=== PATIENT | male | born 1940 ===

== ENCOUNTER 2023-03-23 11:25 | Inpatient (IN) | payer OTHER ==
[~2023-03-23] VITALS: Ht 177.8 cm; Wt 81.6 kg
[2023-03-23] MEDS ORDERED: ACETAMINOPHEN325 M2 PO (17:24)
[2023-03-23] MEDS ORDERED: ALBUTEROL2.5 MG/0.5 INH (17:25)
[2023-03-23] MEDS ORDERED: NORVASC5 MG PO (17:26)
[2023-03-23] MEDS ORDERED: CARBIDOPA-LEVO1 EAC6 PO (17:27)
[2023-03-23] MEDS ORDERED: COREG6.25 MG PO (17:31)
[2023-03-23] MEDS ORDERED: LASIX20 MG PO (17:32)
[2023-03-23] MEDS ORDERED: HYDRALAZINE HYD50 MG PO (17:43)
[2023-03-23] MEDS ORDERED: MELATONIN5 M7 PO (17:52)
[2023-03-23] MEDS ORDERED: PAXIL PO (17:54)
[2023-03-23] MEDS ORDERED: PLAVIX75 M1 PO (17:55)
[2023-03-23] MEDS ORDERED: QULIPTA60 MG PO (17:58)
[2023-03-23] MEDS ORDERED: SENNA8.6 MG PO (18:00)
[2023-03-23] MEDS ORDERED: OMEPRAZOLE40 MG PO (18:01)
[2023-03-23] MEDS ORDERED: MIRALAX17 GM PO (18:01)
[2023-03-23] MEDS ORDERED: CONSTULOSE10 GM/151 PO (18:02)
[2023-03-23 19:32] LABS: BILIRUBIN Negative (Negative); BLOOD Negative (Negative); CLARITY Clear (Clear); COLOR Yellow (Yellow); GLUCOSE Negative (Negative); KETONE Negative (Negative); LEUKO ESTERASE Negative (Negative); NITRITE Negative (Negative); SPECIFIC GRAVITY 1.015 (1.001-1.030); UROBILINOGEN 0.2 E.U./dl (0.0-1.0)
[2023-03-23 19:46] LABS: WBC 0-2 wbc/hpf (0-5)
[2023-03-23 20:00] VITALS: BP 147/87
[2023-03-24 06:37] LABS: HEMATOCRIT 45.1 % (42.0-52.0); LYMPH # 0.7 10*3/uL (1.3-4.4); LYMPH % 7.2 % (27.0-41.0); MEAN CELL VOLUME 87.2 fl (80.0-94.0); MEAN CORPUSCULAR HGB 26.1 pg (27.0-31.0); MEAN CORPUSCULAR HGB CONC 29.9 g/dl (33.0-37.0); MEAN PLATELET VOLUME 9.8 fl (9.6-12.3); MONO # 0.6 10*3/uL (0.1-1.0); MONO % 5.6 % (3.0-9.0); NEUT # 8.5 10*3/uL (2.3-7.9); PLATELET COUNT AUTOMATED 228 10*3/uL (130-400); RED BLOOD COUNT 5.17 10*6/uL (4.50-5.90); RED CELL DISTRI WIDTH 15.1 % (0-14.5); WHITE BLOOD COUNT 9.8 10*3/uL (4.8-10.8)
[2023-03-24 06:58] LABS: BUN 16 mg/dl (9-23); CHLORIDE 98 mmol/L (98-107); CHOLESTEROL 254 mg/dL (<200); LDL CHOLESTEROL 167 mg/dL (9-159); POTASSIUM 4.1 mmol/L (3.4-5.1); TRIGLYCERIDES 168 mg/dl (<150)
[2023-03-24 07:43] LABS: VITAMIN D, 25-HYDROXY 25.4 ng/mL (30-100)
[2023-03-24 08:00] VITALS: BP 168/84
[2023-03-24 20:00] VITALS: BP 135/46
[2023-03-25 08:16] VITALS: BP 150/70
[2023-03-25 20:00] VITALS: BP 150/64
[2023-03-26 08:00] VITALS: BP 154/70
[2023-03-26 20:00] VITALS: BP 150/67
[2023-03-27 07:35] VITALS: BP 96/63
[2023-03-27 20:00] VITALS: BP 156/56
[2023-03-28 09:13] VITALS: BP 152/84
[2023-03-28 20:00] VITALS: BP 150/60
[2023-03-29 07:22] VITALS: BP 154/74
[2023-03-29 19:16] VITALS: BP 150/57
[2023-03-30 06:24] LABS: BASO % 0.2 % (0.0-1.0); BUN 12 mg/dl (9-23); CHLORIDE 99 mmol/L (98-107); EOS # 0.1 10*3/uL (0.0-0.4); EOS % 1.7 % (1.0-4.0); HEMATOCRIT 42.2 % (42.0-52.0); LYMPH % 15.2 % (27.0-41.0); MEAN CORPUSCULAR HGB 26.4 pg (27.0-31.0); MEAN CORPUSCULAR HGB CONC 29.4 g/dl (33.0-37.0); MEAN PLATELET VOLUME 9.7 fl (9.6-12.3); MONO # 0.6 10*3/uL (0.1-1.0); NEUT # 4.6 10*3/uL (2.3-7.9); NEUT % 72.7 % (47.0-73.0); PLATELET COUNT AUTOMATED 180 10*3/uL (130-400); POTASSIUM 4.3 mmol/L (3.4-5.1); RED BLOOD COUNT 4.69 10*6/uL (4.50-5.90); RED CELL DISTRI WIDTH 14.8 % (0-14.5); WHITE BLOOD COUNT 6.3 10*3/uL (4.8-10.8)
[2023-03-30 07:33] VITALS: BP 122/60
[2023-03-30 09:19] LABS: ABG BASE EXCESS 8.8 mmol/L (-2.0-2.0); ARTERIAL BLOOD GAS PH 7.359 (7.35-7.45)
[2023-03-30 20:00] VITALS: BP 135/58
[2023-03-31 06:50] LABS: BUN 8 mg/dl (9-23); CHLORIDE 97 mmol/L (98-107); POTASSIUM 4.4 mmol/L (3.4-5.1)
[2023-03-31 08:00] VITALS: BP 150/52
[2023-03-31 20:00] VITALS: BP 172/65
[2023-04-01 07:27] VITALS: BP 153/76
[2023-04-01 08:01] LABS: BUN 10 mg/dl (9-23); CHLORIDE 98 mmol/L (98-107); POTASSIUM 4.4 mmol/L (3.4-5.1)
[2023-04-01 11:15] LABS: ABG BASE EXCESS 12.3 mmol/L (-2.0-2.0); ARTERIAL BLOOD GAS PH 7.345 (7.35-7.45)
[2023-04-01 20:00] VITALS: BP 152/63
[2023-04-02 07:33] VITALS: BP 117/43
[2023-04-02 08:06] LABS: ABG BASE EXCESS 13.7 mmol/L (-2.0-2.0); ARTERIAL BLOOD GAS PH 7.3 (7.35-7.45)
[2023-04-02 15:09] LABS: ABG BASE EXCESS 15.1 mmol/L (-2.0-2.0); ARTERIAL BLOOD GAS PH 7.364 (7.35-7.45)
[2023-04-02 20:00] VITALS: BP 164/66
[2023-04-03 07:33] VITALS: BP 139/86
[2023-04-03 08:48] LABS: ABG BASE EXCESS 11.1 mmol/L (-2.0-2.0); ARTERIAL BLOOD GAS PH 7.36 (7.35-7.45)
[2023-04-03 09:50] LABS: HEMATOCRIT 45.9 % (42.0-52.0); MANUAL DIFF REFLEX YES; MEAN CORPUSCULAR HGB 26.4 pg (27.0-31.0); MEAN CORPUSCULAR HGB CONC 29.6 g/dl (33.0-37.0); MEAN PLATELET VOLUME 9.5 fl (9.6-12.3); PLATELET COUNT AUTOMATED 199 10*3/uL (130-400); RED BLOOD COUNT 5.16 10*6/uL (4.50-5.90); RED CELL DISTRI WIDTH 14.6 % (0-14.5); WHITE BLOOD COUNT 6.1 10*3/uL (4.8-10.8)
[2023-04-03 10:10] LABS: ALKALINE PHOSPHATASE 48 U/L (46-116); BUN 11 mg/dl (9-23); CHLORIDE 96 mmol/L (98-107); POTASSIUM 4.9 mmol/L (3.4-5.1); SGPT/ALT 8 U/L (5-49); TOTAL PROTEIN 6.3 gm/dL (6.0-8.0)
[2023-04-03 10:22] LABS: OVALOCYTES FEW; PLATELET SUFFICIENCY NORMAL (NORMAL); POLYCHROMASIA SLIGHT; TOTAL CELLS COUNTED 100 #CELLS
[2023-04-03 20:00] VITALS: BP 138/62
[2023-04-04 07:55] VITALS: BP 156/79
[2023-04-04 17:20] LABS: BILIRUBIN Negative (Negative); BLOOD Negative (Negative); CLARITY Clear (Clear); COLOR Yellow (Yellow); GLUCOSE Negative (Negative); KETONE Negative (Negative); LEUKO ESTERASE Negative (Negative); NITRITE Negative (Negative); UROBILINOGEN 0.2 E.U./dl (0.0-1.0)
[2023-04-04 17:27] LABS: EPITHELIAL CELLS 0-2; RBC 0-2 rbc/hpf (0-2)
[2023-04-04 20:00] VITALS: BP 144/64
[2023-04-05 20:00] VITALS: BP 119/51
[2023-04-06 07:27] VITALS: BP 116/50
[2023-04-06 20:00] VITALS: BP 133/61
[2023-04-07 08:00] VITALS: BP 140/78; BP 153/73
[2023-04-07 20:00] VITALS: BP 137/66
[2023-04-08 08:00] VITALS: BP 143/67
[2023-04-08 20:00] VITALS: BP 127/53
[2023-04-09 08:00] VITALS: BP 133/71
[2023-04-09 20:00] VITALS: BP 143/60
[2023-04-10 07:25] VITALS: BP 156/88
[2023-04-10] MEDS ORDERED: BUSPIRONE HCL10 MG PO (09:54)
[2023-04-10] MEDS ORDERED: DULOXETINE HCL60 MG PO (09:54)
[2023-04-10] MEDS ORDERED: DULOXETINE HCL30 MG PO (09:54)
== END 2023-04-10 13:17 | disposition home health service (06) | DRG 885 ==
LOC: 3N 11:25
PROVIDERS: Family Medicine; Internal Medicine; Student in an Organized Health Care Education/Training Program; ADMIT Psychiatry & Neurology Psychiatry; ATTEND Psychiatry & Neurology Psychiatry
PROC: 5A09357 Assistance with Respiratory Ventilation, Less than 24 Consecutive Hours, Continuous Positive Airway Pressure (ICD-10-PCS; principal; 2023-04-07)
DX: F33.2 Major depressive disorder, recurrent severe without psychotic features (principal); K21.9 Gastro-esophageal reflux disease without esophagitis; K40.90 Unilateral inguinal hernia, without obstruction or gangrene, not specified as recurrent; F41.1 Generalized anxiety disorder; G20.A1 Parkinson's disease without dyskinesia, without mention of fluctuations; I25.10 Atherosclerotic heart disease of native coronary artery without angina pectoris; I10 Essential (primary) hypertension; E78.5 Hyperlipidemia, unspecified; G43.909 Migraine, unspecified, not intractable, without status migrainosus; F41.0 Panic disorder [episodic paroxysmal anxiety]; D64.9 Anemia, unspecified; F51.04 Psychophysiologic insomnia; K59.09 Other constipation; K44.9 Diaphragmatic hernia without obstruction or gangrene; R20.8 Other disturbances of skin sensation